=== PATIENT | female | born 1930 | race Caucasian/White ===

== ENCOUNTER 2017-03-19 10:40 | Emergency (ER) | payer MEDICARE ==
[~2017-03-19] VITALS: Ht 157.5 cm; Wt 64.4 kg
[2017-03-19] MEDS ORDERED: TEMA15CA PO (11:01)
[2017-03-19] MEDS ORDERED: BENA20TA2 PO ×2 (11:01)
[2017-03-19] MEDS ORDERED: HYDR-3326 PO (11:01)
[2017-03-19] MEDS ORDERED: AMLO5TAB2 PO ×2 (11:01)
[2017-03-19] MEDS ORDERED: ROSU10TA PO (11:01)
--- NOTE | 2017-03-19 11:20 | NUR ---
PATIENT WAS SEEN BY MD FOR C/O FOOT PAIN AND SWELLING. XRAY DONE ,AWAITING TEST RESULTS.
--- NOTE | 2017-03-19 12:06 | NUR ---
POST OP BOOT APLLIED DIRECTED BY . PATIENT STATES SHE RATHER USE A WALKER THAN CRUTCHES SHE CANNOT COORDINATE THE CRUTCHES. DR MARTIN NOTIFIED. PATIENT W/C TO CAR. DC, rX and follow up instructions given and explained to patient AND SON who state TheY understands all instructions.
== END 2017-03-19 12:10 | disposition home or self-care (01) ==
LOC: ER 10:40
DX: S92.332A Displaced fracture of third metatarsal bone, left foot, initial encounter for closed fracture (principal); S92.342A Displaced fracture of fourth metatarsal bone, left foot, initial encounter for closed fracture; I10 Essential (primary) hypertension; E78.5 Hyperlipidemia, unspecified; W22.03XA Walked into furniture, initial encounter; Y93.89 Activity, other specified; Y92.9 Unspecified place or not applicable; Y99.9 Unspecified external cause status
CPT/HCPCS: 73630; 99284; A4663

== ENCOUNTER 2017-09-26 08:59 | Inpatient (IN) | payer MEDICARE ==
[~2017-09-26] VITALS: Ht 157.5 cm; Wt 61.2 kg
[~2017-09-26 08:59] MED LIST: AMLO5TAB2 PO; BENA20TA2 PO; HYDR-3326 PO; ROSU10TA PO; TEMA15CA PO
[2017-09-26] MEDS ORDERED: IV NORMAL SALINE 1000 ML BAG IV ONE (09:45)
[2017-09-26 09:54] LABS: BASOPHILS # (AUTO) 0.1 K/uL (0.0-8.0); BASOPHILS % (AUTO) 0.9 % (0.0-2.0); EOSINOPHILS % (AUTO) 0.1 % (0.0-7.0); HEMATOCRIT 35.1 % (31.2-41.9); HEMOGLOBIN 11.9 g/dL (10.9-14.3); LYMPHOCYTES # (AUTO) 1.4 K/uL (20.0-40.0); LYMPHOCYTES % (AUTO) 13.3 % (20.5-51.5); MEAN CORPUSCULAR HGB CONC 34 g/dL (32.3-35.6); MEAN CORPUSCULAR VOLUME 88.7 fL (75.5-95.3); MONOCYTES # (AUTO) 1.4 K/uL (2.0-10.0); MONOCYTES % (AUTO) 13.3 % (0.0-11.0); NEUTROPHILS # (AUTO) 7.6 K/uL (1.8-8.9); NEUTROPHILS % (AUTO) 72.4 % (38.5-71.5); PLATELET COUNT (AUTO) 229 K/uL (179-408); RED BLOOD CELL COUNT(AUTO) 3.96 MIL/uL (3.63-4.92); WHITE BLOOD COUNT (AUTO) 10.6 K/uL (3.8-11.8)
[2017-09-26 10:01] LABS: CARBON DIOXIDE 25 mmol/L (21-32); CHLORIDE 103 mmol/L (98-107); CREATININE 1.4 mg/dL (0.6-1.3); GLUCOSE 124 mg/dL (74-106); UREA NITROGEN, BLOOD 40 mg/dL (7-18)
[2017-09-26 10:07] LABS: ALANINE AMINOTRANSFERASE 35 U/L (14-59); ALKALINE PHOSPHATASE 115 U/L (50-136); ASPARTATE AMINOTRANSFERASE 44 U/L (15-37); BILIRUBIN,DIRECT 0.1 mg/dL (0.0-0.2); BILIRUBIN,TOTAL 0.5 mg/dL (0.2-1.0)
[2017-09-26] MEDS ORDERED: PANTOPRAZOLE SODIUM 40 MG VIAL ONE (10:59)
[2017-09-26] MEDS ORDERED: PANTOPRAZOLE SODIUM 40 MG VIAL IV ONE (11:00)
[2017-09-26 11:24] LABS: *OCCULT BLOOD STOOL POSITIVE (NEGATIVE)
[2017-09-26 13:00] VITALS: BP 138/36
[2017-09-26] MEDS ORDERED: MAGNESIUM CITRATE 296 ML BOTTLE PO ONE ×2 (15:00→23:00)
[2017-09-26] MEDS ORDERED: ACETAMINOPHEN 650 MG SUPP.RECT RC PRN (15:00)
[2017-09-26] MEDS ORDERED: MORPHINE SULFATE 2 MG/1 ML DISP.SYRIN IV PRN (15:00)
[2017-09-26] MEDS ORDERED: ENALAPRILAT DIHYDRATE INJ 2.5 MG in IV NORMAL SALINE 50 ML IV PRN (15:00)
[2017-09-26] MEDS ORDERED: GOLYTELY 4000 ML BOTTLE PO ONE (15:00)
[2017-09-26 15:45] VITALS: BP 143/51
[2017-09-26 16:00] VITALS: BP 137/66
[2017-09-26] MEDS: IV 1/2NS 1000 ML 1,000 ML IV PRN (17:47)
[2017-09-26 20:00] VITALS: BP 152/61
[2017-09-26] MEDS: LORAZEPAM 2 MG/1 ML VIAL IV PRN (21:17)
[2017-09-26] MEDS ORDERED: MAGNESIUM CITRATE 296 ML BOTTLE ONE (23:44)
[2017-09-27] VITALS: BP 144/40
[2017-09-27 04:00] VITALS: BP 130/55
[2017-09-27 06:35] LABS: BASOPHILS % (AUTO) 0.4 % (0.0-2.0); EOSINOPHILS # (AUTO) 0.1 K/uL (0.0-0.7); EOSINOPHILS % (AUTO) 0.5 % (0.0-7.0); HEMATOCRIT 31.6 % (31.2-41.9); HEMOGLOBIN 10.9 g/dL (10.9-14.3); LYMPHOCYTES # (AUTO) 1.4 K/uL (20.0-40.0); LYMPHOCYTES % (AUTO) 14.1 % (20.5-51.5); MEAN CORPUSCULAR HEMOGLOBIN 30.4 uug (24.7-32.8); MEAN CORPUSCULAR HGB CONC 35 g/dL (32.3-35.6); MEAN CORPUSCULAR VOLUME 88.1 fL (75.5-95.3); MONOCYTES # (AUTO) 1.3 K/uL (2.0-10.0); PLATELET COUNT (AUTO) 197 K/uL (179-408); RED BLOOD CELL COUNT(AUTO) 3.59 MIL/uL (3.63-4.92); WHITE BLOOD COUNT (AUTO) 9.7 K/uL (3.8-11.8)
[2017-09-27 06:51] LABS: IRON, SERUM 19 ug/dL (50-175)
[2017-09-27 06:55] LABS: ALANINE AMINOTRANSFERASE 30 U/L (14-59); ALKALINE PHOSPHATASE 98 U/L (50-136); ASPARTATE AMINOTRANSFERASE 36 U/L (15-37); BILIRUBIN,TOTAL 0.4 mg/dL (0.2-1.0); CARBON DIOXIDE 27 mmol/L (21-32); CHLORIDE 103 mmol/L (98-107); CHOLESTEROL 172 mg/dL (<200); CREATININE 0.9 mg/dL (0.6-1.3); GLUCOSE 116 mg/dL (74-106); HDL CHOLESTEROL 24 mg/dL (40-60); MAGNESIUM 2.3 mg/dL (1.8-2.4); PHOSPHOROUS 2.5 mg/dL (2.5-4.9); POTASSIUM 3.7 mmol/L (3.5-5.1); TOTAL PROTEIN, SERUM 6.1 g/dL (6.4-8.2); TRIGLYCERIDES 115 MG/DL (30-150); UREA NITROGEN, BLOOD 24 mg/dL (7-18)
[2017-09-27 07:05] LABS: THYROID STIMULATING HORMONE 1.898 mIU/mL (0.358-3.740)
[2017-09-27] MEDS: PANTOPRAZOLE SODIUM 40 MG VIAL IV SCH (09:02)
[2017-09-27] MEDS: FLEET ENEMA 133 ML BOTTLE RC PRN ×2 (09:45→12:19)
[2017-09-27 12:05] VITALS: BP 130/55
[2017-09-27] MEDS ORDERED: LIDOCAINE HCL 1% 20 ML VIAL MC ONE (12:09)
[2017-09-27] MEDS ORDERED: PROPOFOL 1,000 MG/100 ML BOTTLE MC ONE (12:09)
[2017-09-27] MEDS ORDERED: ETOMIDATE 20 MG/10 ML VIAL MC ONE (12:09)
[2017-09-27 16:29] VITALS: BP 164/81
[2017-09-27 20:00] VITALS: BP 146/55
[2017-09-27] MEDS: LORAZEPAM 2 MG/1 ML VIAL IV PRN (21:32)
[2017-09-27] MEDS: AMLODIPINE 5 MG TABLET PO SCH (23:43)
[2017-09-28] MEDS: IV 1/2NS 1000 ML 1,000 ML IV PRN (04:16)
[2017-09-28] MEDS: PANTOPRAZOLE SODIUM 40 MG VIAL IV SCH (08:18)
[2017-09-28] MEDS: AMLODIPINE 5 MG TABLET PO SCH (08:20)
[2017-09-28 09:48] LABS: BASOPHILS % (AUTO) 0.4 % (0.0-2.0); EOSINOPHILS # (AUTO) 0.2 K/uL (0.0-0.7); EOSINOPHILS % (AUTO) 2.5 % (0.0-7.0); HEMATOCRIT 33.4 % (31.2-41.9); HEMOGLOBIN 11.4 g/dL (10.9-14.3); LYMPHOCYTES # (AUTO) 1.3 K/uL (20.0-40.0); LYMPHOCYTES % (AUTO) 13.9 % (20.5-51.5); MEAN CORPUSCULAR HEMOGLOBIN 29.9 uug (24.7-32.8); MEAN CORPUSCULAR HGB CONC 34 g/dL (32.3-35.6); MONOCYTES # (AUTO) 1.2 K/uL (2.0-10.0); MONOCYTES % (AUTO) 12.4 % (0.0-11.0); NEUTROPHILS # (AUTO) 6.7 K/uL (1.8-8.9); NEUTROPHILS % (AUTO) 70.8 % (38.5-71.5); PLATELET COUNT (AUTO) 237 K/uL (179-408); WHITE BLOOD COUNT (AUTO) 9.4 K/uL (3.8-11.8)
[2017-09-28 10:02] LABS: CARBON DIOXIDE 26 mmol/L (21-32); CHLORIDE 101 mmol/L (98-107); GLUCOSE 98 mg/dL (74-106); PHOSPHOROUS 2.9 mg/dL (2.5-4.9); POTASSIUM 3.4 mmol/L (3.5-5.1); UREA NITROGEN, BLOOD 17 mg/dL (7-18)
[2017-09-28] MEDS ORDERED: POTASSIUM CHLORIDE 20 MEQ TAB.PRT.SR PO ONE (11:00)
[2017-09-28] MEDS ORDERED: PANT40TA2 PO (11:21)
[2017-09-28] MEDS ORDERED: FERR325T22 PO (11:21)
[2017-09-28 11:43] VITALS: BP 156/60
== END 2017-09-28 12:10 | disposition home or self-care (01) | DRG 393 ==
LOC: ER 09:00 → TELE 12:35 → MED 09-27 16:15
PROVIDERS: ADMIT Internal Medicine; ATTEND Internal Medicine
PROC: 0DB68ZX Excision of Stomach, Via Natural or Artificial Opening Endoscopic, Diagnostic (ICD-10-PCS; 2017-09-27)
PROC: 0DBN8ZX Excision of Sigmoid Colon, Via Natural or Artificial Opening Endoscopic, Diagnostic (ICD-10-PCS; principal; 2017-09-27 14:09)
PROC: 0DB48ZX Excision of Esophagogastric Junction, Via Natural or Artificial Opening Endoscopic, Diagnostic (ICD-10-PCS; 2017-09-27 14:09)
DX: K64.8 Other hemorrhoids (principal); N17.0 Acute kidney failure with tubular necrosis; J84.9 Interstitial pulmonary disease, unspecified; K55.9 Vascular disorder of intestine, unspecified; M48.54XA Collapsed vertebra, not elsewhere classified, thoracic region, initial encounter for fracture; E86.0 Dehydration; E44.1 Mild protein-calorie malnutrition; J70.5 Respiratory conditions due to smoke inhalation; K51.518 Left sided colitis with other complication; K52.3 Indeterminate colitis; E78.5 Hyperlipidemia, unspecified; E87.6 Hypokalemia; I70.0 Atherosclerosis of aorta; Z87.891 Personal history of nicotine dependence; K59.00 Constipation, unspecified; M51.36 Other intervertebral disc degeneration, lumbar region; M51.35 Other intervertebral disc degeneration, thoracolumbar region; Z79.1 Long term (current) use of non-steroidal anti-inflammatories (NSAID); G89.29 Other chronic pain; K57.30 Diverticulosis of large intestine without perforation or abscess without bleeding; K44.9 Diaphragmatic hernia without obstruction or gangrene; K29.50 Unspecified chronic gastritis without bleeding; I10 Essential (primary) hypertension
CPT/HCPCS: 36415; 70030-TC; 71045; 82378; 83550; 83735; 84100; 84443; 85025; 85730; 86850; 86900; 86901; 88342; 93005; A4663; C9113; J2060; J3490; J7030